=== PATIENT | female | born 1975 | race Caucasian/White ===

== ENCOUNTER 2023-09-28 09:18 | Day surgery (SDC) | payer OTHER ==
[~2023-09-28] VITALS: Ht 162.6 cm; Wt 74.8 kg
[2023-09-28] MEDS ORDERED: MIDAZOLAM 2 MG/2 ML VIAL ONE (10:37)
[2023-09-28] MEDS ORDERED: fentaNYL citrate 0.05 MG/ML VIAL ONE (10:38)
[2023-09-28] MEDS: fentaNYL citrate 0.05 MG/ML VIAL IVP ONE (10:57)
[2023-09-28] MEDS: LIDOCAINE 2% 100 MG/5 ML UJET TP ONE (11:11)
== END 2023-09-28 12:15 | disposition home or self-care (01) ==
LOC: MDS 09:18 → MMU 09:18 → MDS 12:15
PROVIDERS: ATTEND Internal Medicine Gastroenterology
DX: Z12.11 Encounter for screening for malignant neoplasm of colon (principal); Z90.49 Acquired absence of other specified parts of digestive tract
CPT/HCPCS: 45378; J3010; J2250